=== PATIENT | female | born 1975 | race Caucasian/White ===

== ENCOUNTER 2018-12-17 13:21 | Emergency (ER) | payer OTHER ==
[~2018-12-17] VITALS: Ht 165.1 cm; Wt 100.0 kg
[2018-12-17 13:43] VITALS: BP 138/102
[2018-12-17] MEDS ORDERED: DULO60CA45 PO (14:14)
[2018-12-17] MEDS ORDERED: PREG150C PO (14:14)
== END 2018-12-17 14:50 | disposition home or self-care (01) ==
LOC: ER 13:22
DX: F41.9 Anxiety disorder, unspecified (principal); Z76.0 Encounter for issue of repeat prescription; F32.9 Major depressive disorder, single episode, unspecified; I10 Essential (primary) hypertension
CPT/HCPCS: 99283

== ENCOUNTER 2019-01-16 14:35 | Emergency (ER) | payer OTHER ==
[~2019-01-16] VITALS: Ht 165.1 cm; Wt 100.0 kg
[~2019-01-16 14:35] MED LIST: DULO60CA45 PO; PREG150C PO
[2019-01-16 14:43] VITALS: BP 166/106
== END 2019-01-16 15:18 | disposition home or self-care (01) ==
LOC: ER 14:35
DX: G89.29 Other chronic pain (principal); M54.5 Low back pain; I10 Essential (primary) hypertension; Z79.899 Other long term (current) drug therapy; Z88.2 Allergy status to sulfonamides; Z98.890 Other specified postprocedural states; W01.0XXA Fall on same level from slipping, tripping and stumbling without subsequent striking against object, initial encounter; Y93.89 Activity, other specified; Y92.89 Other specified places as the place of occurrence of the external cause; Y99.8 Other external cause status
CPT/HCPCS: 99281

== ENCOUNTER 2019-02-13 15:21 | Emergency (ER) | payer OTHER ==
[~2019-02-13] VITALS: Ht 165.1 cm; Wt 100.0 kg
[2019-02-13 15:49] VITALS: BP 162/95
[2019-02-13] MEDS ORDERED: DOXY100C43 PO (15:54)
[2019-02-13] MEDS ORDERED: LIDOcaine 1% w/epiNEPHrine 1:200,000 30ml vial IM ONE (15:55)
== END 2019-02-13 16:37 | disposition home or self-care (01) ==
LOC: ER 15:23
DX: K12.2 Cellulitis and abscess of mouth (principal); I10 Essential (primary) hypertension; Z98.890 Other specified postprocedural states; Z88.2 Allergy status to sulfonamides; Z79.899 Other long term (current) drug therapy
CPT/HCPCS: 10060; 99283; J3490

== ENCOUNTER 2020-02-14 12:55 | Emergency (ER) | payer OTHER ==
[~2020-02-14] VITALS: Ht 167.6 cm; Wt 77.0 kg
[2020-02-14 13:45] LABS: URINE HCG NEGATIVE (NEG)
[2020-02-14 13:52] LABS: CLARITY,URINE SLIGHTLY CLOUDY (Clear); COLOR,URINE YELLOW (Yellow); GLUCOSE, URINE NEGATIVE (Neg); KETONES,URINE NEGATIVE (Neg); LEUKOCYTE ESTERASE ,URINE NEGATIVE (Neg); NITRITES, URINE POSITIVE (Neg); OCCULT BLOOD,URINE TRACE-INTACT (Neg); PROTEIN,URINE NEGATIVE (Neg)
[2020-02-14 13:57] LABS: URINE AMPHETAMINE SCREEN POSITIVE (Neg); URINE BENZODIAZEPINES SCREEN NEGATIVE (Neg); URINE CANNABINOID SCREEN NEGATIVE (Neg); URINE COCAINE SCREEN NEGATIVE (Neg); URINE METHADONE SCREEN NEGATIVE (Neg); URINE OPIATE SCREEN NEGATIVE (Neg); URINE PHENCYCLIDINE SCREEN NEGATIVE (Neg)
[2020-02-14 13:58] LABS: UA COLLECTION TYPE CLN CATCH MIDSTREAM
[2020-02-14 14:00] LABS: BACTERIA,URINE 4+ /HPF (Neg); MUCUS STRANDS NONE SEEN /LPF (Neg); RBC,URINE 0-2 /HPF (0-2); SQUAMOUS EPITHELIAL CELL,UR MODERATE /LPF (FEW); WBC CLUMPS,URINE FEW /HPF (NEGATIVE)
[2020-02-14 14:05] LABS: URINE BARBITUATE SCREEN NEGATIVE (Neg)
[2020-02-14 14:06] LABS: BASOPHILS # (AUTO) 0.1 X10'3 (0-0.2); BASOPHILS % (AUTO) 0.6 % (0-1); EOSINOPHILS % (AUTO) 0.4 % (0-6); HEMATOCRIT 35.1 % (35.0-45.0); HEMOGLOBIN 11.5 g/dl (12.0-16.0); LYMPHOCYTES # (AUTO) 2.1 X10'3 (1.1-4.8); LYMPHOCYTES % (AUTO) 19.7 % (21-51); MEAN CORPUSCULAR HEMOGLOBIN 26.7 PG (27.0-31.0); MEAN CORPUSCULAR HGB CONC 32.9 g/dL (33.0-36.5); MEAN CORPUSCULAR VOLUME 81.2 FL (78-98); MONOCYTES # (AUTO) 0.9 X10'3 (0-0.9); MONOCYTES % (AUTO) 8.6 % (2-12); NEUTROPHILS # (AUTO) 7.7 X10'3 (1.8-7.7); NEUTROPHILS % (AUTO) 70.7 % (42-75); PLATELET COUNT 464 X10'3 (140-440); RED BLOOD COUNT 4.32 X10'6 (4.20-5.60); RED CELL DISTRIBUTION WIDTH 18.3 % (11.5-14.5); WHITE BLOOD COUNT 10.8 X10'3 (4.5-11.0)
[2020-02-14 14:14] LABS: ALANINE AMINOTRANSFERASE 13 U/L (12-78); ALBUMIN 3.7 G/DL (3.4-5.0); ALBUMIN/GLOBULIN RATIO 0.9 (1.1-1.5); ALKALINE PHOSPHATASE 86 IU/L (46-116); ANION GAP 11 (8-16); ASPARTATE AMINO TRANSFERASE 8 U/L (10-37); BLOOD UREA NITROGEN 9 MG/DL (7-18); CALCIUM 9.6 MG/DL (8.5-10.1); CHLORIDE 107 MMOL/L (99-107); CREATININE 0.82 MG/DL (0.40-0.90); GLUCOSE 98 MG/DL (70-104); POTASSIUM 3.2 MMOL/L (3.5-5.1); SODIUM 142 MMOL/L (135-145); TOTAL CARBON DIOXIDE 23.6 MMOL/L (24-32); TOTAL PROTEIN 7.9 G/DL (6.4-8.2); eGFR 76 ML/MIN
[2020-02-14 14:23] LABS: ETHANOL < 0.010 GM/DL (0.0-0.010)
[2020-02-14] MEDS ORDERED: NO HOME MEDS (14:38)
[2020-02-14] MEDS: cephalexin 250mg capsule PO SCH ×2 (14:40→19:31)
--- NOTE | 2020-02-14 18:45 | NUR ---
Packet to [facility]
[2020-02-14] MEDS ORDERED: hydrOXYzine 25 MG tablet PO ONE (19:15)
[2020-02-14] MEDS ORDERED: ibuprofen tablet 400 MG TABLET PO PRN (19:15)
--- NOTE | 2020-02-14 19:30 | NUR ---
One to one with the patient to assess severity of depressive symptoms and self harm risk. The patient reports she is feeling sucidal but with no plan currently. She then became very tearful and stated that she felt her family would be better off without her. She reports that her two children age 17 and 27 will not have anything to do with her and her family "has disowned me" She stated her boyfriend of one year just broke up with her. She stated she has no place to live, no car and no source of income currently. She stated her anxiety level was high. She stated prior psychiatric diagnosis have been PTSD, MDD but denies a history of BPD. She has a hx of self harming behaviors and stated she last had self harm behaviors over one month ago. She stated that she stopped all of her psychiatric medications since June of this last year. She stated she used methamphetamine one day ago. She presents as cooperative with the unit routine. She denies psychotic symptoms and one were apparent during the assessment.
--- NOTE | 2020-02-14 20:05 | NUR ---
[facility] is here to asssess the patient.
--- NOTE | 2020-02-14 21:25 | NUR ---
Per [facility] the patient will be placed on a 5150 hold.
--- NOTE | 2020-02-14 23:23 | NUR ---
The patient appears to be sleeping.
--- NOTE | 2020-02-15 01:11 | NUR ---
The patient appears to be sleeping.
--- NOTE | 2020-02-15 03:30 | NUR ---
The patient appears to be sleeping.
--- NOTE | 2020-02-15 04:45 | NUR ---
The patient appears to be sleeping.
[2020-02-15 06:05] VITALS: BP 120/72
--- NOTE | 2020-02-15 07:00 | NUR ---
Masha booker in [facility] - 02/15/20 at 0917 by DOUGLAS UP TO BATHROOM AND HAD BM. WENT BACK TO BED AT THIS TIME.
--- NOTE | 2020-02-15 08:00 | NUR ---
Masha booker in [facility] - 02/15/20 at 0917 by DOUGLAS IN BED, SLEEPING. NO DISTRESS NOTED AT PRESENT.
--- NOTE | 2020-02-15 08:10 | NUR ---
Masha booker in [facility] - 02/15/20 at 0904 by DOUGLAS MENTAL HEALTH WORKER AT THE BEDSIDE TO INTERVIEW PATIENT.
--- NOTE | 2020-02-15 08:25 | NUR ---
Masha booker in [facility] - 02/15/20 at 0905 by DOUGLAS BREAKFAST SERVED. ATE 100% OF MEAL AND TOLERATED WELL.
[2020-02-15] MEDS: cephalexin 250mg capsule PO SCH (08:41)
--- NOTE | 2020-02-15 08:55 | NUR ---
Note ade in [facility]M - 02/15/20 at 0906 by DOUGLAS MENTAL HEALTH WORKER AT THE BEDSIDE. PATIENT STATES HE NEEDS TO BE IN [place] TOMORROW FOR A COURT DATE. HE IS UNSURE HOW HE IS GETTING THERE, BUT HE IS ENCOURAGED TO CALL FAMILY MEMBER FOR ASSISTANCE WITH TRANSPORTATION. ATTEMPTING TO USE PHONE TO CALL FAMILY, BUT UNSUCCESSFUL AT THIS TIME.
--- NOTE | 2020-02-15 09:42 | NUR ---
[facility]VD REPORT FROM JENNIFER HERNANDES, PT IS IN BED LAYING ON HER RIGHT SIDE, EYES CLOSED APPEARS TO BE SLEEPING, REGULAR, SPONTANEOUS BREATHING OBSERVED, WILL CONTINUE TO MONITOR
--- NOTE | 2020-02-15 10:36 | NUR ---
PT IS IN SITTING UP IN BED, CALM, NO AGITATION OBSERVED
--- NOTE | 2020-02-15 11:19 | NUR ---
PT IS RESTING ON HER RIGHT SIDE, EYES CLOSED, APPEARS TO BE ASLEEP, REGULAR BREATHING OBSERVED
--- NOTE | 2020-02-15 12:00 | NUR ---
CALLED KRISTEN Joseph GAVE REPORT, PT IS TO BE ADMITTED UP TO [facility] FOR [facility] AT APPROX 1400
--- NOTE | 2020-02-15 12:07 | NUR ---
PT IS SITTING UP IN BED, NO AGITATION OBSERVED
--- NOTE | 2020-02-15 13:22 | NUR ---
PT IS SITTING UP IN BED, NO AGITATION OBSERVED, WILL CONTINUE TO MONITOR
[2020-02-15] MEDS ORDERED: BUPR300T86 (15:53)
[2020-02-15] MEDS ORDERED: BUSP15TA3 (15:53)
[2020-02-15] MEDS ORDERED: DULO60CA65 (15:53)
[2020-02-15] MEDS ORDERED: PREG100C55 (15:53)
[2020-02-15] MEDS ORDERED: lactobacillus rhamnosus 10,000 MMU CELLS/CAPSULE PO SCH (20:00)
== END 2020-02-15 14:31 ==
LOC: ER 12:56
DX: R45.851 Suicidal ideations (principal); N39.0 Urinary tract infection, site not specified; I10 Essential (primary) hypertension; F41.9 Anxiety disorder, unspecified; Z98.890 Other specified postprocedural states; Z88.2 Allergy status to sulfonamides
CPT/HCPCS: 36415; 80053; 80305; 80320; 81001; 81025; 84443; 85025; 99285; Q0177

== ENCOUNTER 2020-02-15 11:25 | Inpatient (IN) | payer OTHER ==
[~2020-02-15] VITALS: Ht 167.6 cm; Wt 76.3 kg
[~2020-02-15 11:25] MED LIST changes: -DULO60CA45 PO; +NO HOME MEDS; -PREG150C PO
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
[2020-02-15] MEDS ORDERED: potassium Cl 20 mEq SR tablet PO PRN (15:35)
[2020-02-15] MEDS: K and/or MAG REPLACEMENT MC SCH ×2 (15:35→20:00)
[2020-02-15] MEDS ORDERED: acetaminophen 325mg tablet PO PRN ×2 (15:40)
[2020-02-15] MEDS ORDERED: mag hydrox/Alum hydrox/simeth 30ml oral suspension PO PRN (15:40)
[2020-02-15] MEDS ORDERED: loperamide 2mg capsule PO PRN (15:40)
[2020-02-15] MEDS ORDERED: magnesium hydroxide 30ml (MOM) UD suspension PO PRN (15:40)
[2020-02-15] MEDS ORDERED: DULO60CA65 (15:53)
[2020-02-15] MEDS ORDERED: BUSP15TA3 (15:53)
[2020-02-15] MEDS ORDERED: PREG100C55 (15:53)
[2020-02-15] MEDS ORDERED: BUPR300T86 (15:53)
[2020-02-15 16:01] VITALS: BP 132/77
[2020-02-15] MEDS: ibuprofen tablet 400 MG TABLET PO PRN (16:44)
[2020-02-15] MEDS: LORazepam 1 MG tablet PO PRN (16:44)
[2020-02-15] MEDS: cephalexin 500mg capsule PO SCH (20:36)
[2020-02-15] MEDS: pregabalin 25mg capsule PO SCH (20:36)
[2020-02-15] MEDS: busPIRone 15mg tablet PO SCH (20:37)
[2020-02-15 20:59] VITALS: BP 135/75
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
[2020-02-16] MEDS ORDERED: duloxetine 30mg CAPSULE.DR PO SCH (08:00)
[2020-02-16] MEDS: K and/or MAG REPLACEMENT MC SCH ×2 (08:00→19:37)
[2020-02-16 08:29] VITALS: BP 120/86
[2020-02-16] MEDS: lactobacillus rhamnosus 10,000 MMU CELLS/CAPSULE PO SCH (08:49)
[2020-02-16] MEDS: busPIRone 15mg tablet PO SCH ×2 (08:49→21:23)
[2020-02-16] MEDS: pregabalin 25mg capsule PO SCH ×3 (08:49→21:23)
[2020-02-16] MEDS: cephalexin 500mg capsule PO SCH ×2 (08:49→21:23)
[2020-02-16] MEDS: LORazepam 1 MG tablet PO PRN (08:56)
[2020-02-16 09:06] LABS: HEMOGLOBIN A1C 5.5 % (4.5-6.2)
--- NOTE | 2020-02-16 09:12 | NUR ---
Malnutrition consult re: history gastric sleeve 6.5 years ago. No edema. Eating 100% of meals. No severe muscle weakness. Weight loss expected after any gastric surgery however past weights are all patient stated and not reliable for assessing malnutrition. Current BMI is good. No malnutrition present. Addendum: 02/16/20 at [address] Amended: Links added.
[2020-02-16 09:17] LABS: CHOL/HDL RATIO 2.9 (0.00-4.99); CHOLESTEROL 162 MG/DL (0-200); HDL CHOLESTEROL 55 MG/DL (35-60); LDL CHOLESTEROL 95 MG/DL (50-100); POTASSIUM 3.9 MMOL/L (3.5-5.1); TRIGLYCERIDES 61 MG/DL (20-135)
--- NOTE | 2020-02-16 10:00 | NUR ---
Group Therapy: Process Group This Clinicians goals for this process group were as follows: (1) Ask scaling questions about Patients current anxiety, depression, and irritability symptoms as a check-in. (2) Share with Patients psychoeducation about the importance of being able to identify safe, and supportive people who can assist them with their mental and emotional needs. (3) Share psychoeducation on interpersonal boundaries and considerations to assist Patients in developing the ability to discern which groups and individuals will be helpful in assisting them during times of emotional escalation and crisis. (4) Review emotional relaxation techniques (5) Engage Patients in discussion of the topics discussed within the group milieu. Patient identified experiencing the following levels of anxiety, depression, and anger/irritability while present in the group milieu. Anxiety: 510 Depression: 710 Anger irritability: 11/21 Patient presented as cooperative within the group milieu. Patient dressed in non-descript personal clothing that was appropriate for age, and gender expression. She presented as subdued and nonobtrusive within the group milieu. Patient was able to describe her subjective impression of how her depression felt in her body, as she stated that she felt, "Hollow, and empty," with a number she identified as 7/10. Patient did not contribute verbally in the discussion on interpersonal boundaries and strategies on how to invite new members into a [place] of trust so that she could increase her mental health support system. Patient unobtrusively left the group milieu prior to the official ending of the group process. Dada John MA, LAY Addendum: 02/16/20 at 1151 by Dada John SS Amended: Links added.
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
[2020-02-16 20:00] VITALS: BP 134/82
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
[2020-02-17 08:00] VITALS: BP 132/94
[2020-02-17] MEDS: K and/or MAG REPLACEMENT MC SCH ×2 (08:00→20:00)
[2020-02-17] MEDS: pantoprazole 40mg Tablet.DR PO SCH (09:13)
[2020-02-17] MEDS: lactobacillus rhamnosus 10,000 MMU CELLS/CAPSULE PO SCH (09:13)
[2020-02-17] MEDS: busPIRone 15mg tablet PO SCH ×2 (09:13→20:49)
[2020-02-17] MEDS: cephalexin 500mg capsule PO SCH ×2 (09:14→20:49)
[2020-02-17] MEDS: pregabalin 25mg capsule PO SCH ×3 (09:14→20:49)
[2020-02-17] MEDS: voritoxetine HBr tablet 5 MG TABLET PO SCH (09:14)
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
[2020-02-17] MEDS: LORazepam 1 MG tablet PO PRN (09:31)
[2020-02-17] MEDS: ibuprofen tablet 400 MG TABLET PO PRN (09:31)
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
--- NOTE | 2020-02-17 16:41 | NUR ---
DISCHARGE PLANNING Called Dr Mora office, [facility], to schedule follow up appt. They did not have record of Ayse. Faxed a referral form that she filled out. She will need to contact her insurance to find out where she can go for therapy. LAY Jackson
[2020-02-17 20:00] VITALS: BP 140/86
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
[2020-02-18 08:00] VITALS: BP 136/84
[2020-02-18] MEDS: K and/or MAG REPLACEMENT MC SCH (08:00)
--- NOTE | 2020-02-18 08:00 | NUR ---
Unclear K order in [facility]. Per Valeria MURRAY note, "pt last dose KDur 02/15/20 1644, K+ 4.5 on 02/16". KDur not dispensed in [facility] and not given per RN. (Pt K+ draw done today, 4.6 on 02/18/20).
[2020-02-18] MEDS: pantoprazole 40mg Tablet.DR PO SCH (08:30)
[2020-02-18] MEDS: pregabalin 25mg capsule PO SCH ×3 (08:30→20:47)
[2020-02-18] MEDS: busPIRone 15mg tablet PO SCH ×2 (08:31→20:48)
[2020-02-18] MEDS: voritoxetine HBr tablet 5 MG TABLET PO SCH (08:31)
[2020-02-18] MEDS: lactobacillus rhamnosus 10,000 MMU CELLS/CAPSULE PO SCH (08:31)
[2020-02-18] MEDS: cephalexin 500mg capsule PO SCH ×2 (08:31→20:49)
[2020-02-18] MEDS: LORazepam 1 MG tablet PO PRN (13:08)
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
[2020-02-18 20:00] VITALS: BP 127/83
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
[2020-02-19 07:55] VITALS: BP 116/78
[2020-02-19] MEDS: lactobacillus rhamnosus 10,000 MMU CELLS/CAPSULE PO SCH (08:12)
[2020-02-19] MEDS: pantoprazole 40mg Tablet.DR PO SCH (08:13)
[2020-02-19] MEDS: busPIRone 15mg tablet PO SCH (08:13)
[2020-02-19] MEDS: pregabalin 25mg capsule PO SCH ×2 (08:13→13:34)
[2020-02-19] MEDS: voritoxetine HBr tablet 5 MG TABLET PO SCH (08:13)
[2020-02-19] MEDS: ibuprofen tablet 400 MG TABLET PO PRN (08:38)
[2020-02-19] MEDS: LORazepam 1 MG tablet PO PRN (11:47)
[2020-02-19] MEDS ORDERED: BUSP30TA2 PO (12:26)
[2020-02-19] MEDS ORDERED: PANT40TA4 PO (12:26)
[2020-02-19] MEDS ORDERED: ATI1T PO (12:26)
[2020-02-19] MEDS ORDERED: VORT5TAB PO (12:26)
--- NOTE | 2020-02-19 14:04 | NUR ---
Nursing Discharge Note: Pt discharged from [facility] at 1355, accompanied by applied psychology chair to lobby where significant other is waiting to take home. Pt belongings inventoried and returned to her. Pt in no acute physical or emotional distress. She is pleased to be leaving and in pleasant mood with restricted affect. Pt has been improving since admission. Pt denies SI/HI, understands FU instructions and did not want nicotine replacement.
== END 2020-02-19 14:00 | disposition home or self-care (01) | DRG 885 ==
LOC: ADULT MH 11:25
PROVIDERS: ADMIT Psychiatry & Neurology Psychiatry; ATTEND Psychiatry & Neurology Psychiatry
DX: F33.2 Major depressive disorder, recurrent severe without psychotic features (principal); R45.851 Suicidal ideations; N39.0 Urinary tract infection, site not specified; F15.10 Other stimulant abuse, uncomplicated; I10 Essential (primary) hypertension; K21.9 Gastro-esophageal reflux disease without esophagitis; F43.12 Post-traumatic stress disorder, chronic; F41.9 Anxiety disorder, unspecified; E87.6 Hypokalemia; G89.29 Other chronic pain; M54.9 Dorsalgia, unspecified; Z83.3 Family history of diabetes mellitus; Z81.8 Family history of other mental and behavioral disorders; Z82.49 Family history of ischemic heart disease and other diseases of the circulatory system; Z82.5 Family history of asthma and other chronic lower respiratory diseases; Z90.711 Acquired absence of uterus with remaining cervical stump; Z56.0 Unemployment, unspecified; Z71.51 Drug abuse counseling and surveillance of drug abuser
CPT/HCPCS: 36415; 80061; 83036; 84132; 84443; 87081; 99285

== ENCOUNTER 2023-02-19 12:07 | Emergency (ER) | payer MEDICAID, OTHER ==
[~2023-02-19] VITALS: Ht 165.1 cm; Wt 95.0 kg
[~2023-02-19 12:07] MED LIST changes: +ATI1T PO; +BUSP30TA2 PO; -NO HOME MEDS; +PANT40TA54 PO; +PREG100C55; +VORT5TAB PO
[2023-02-19] MEDS ORDERED: normal saline 1000ML IV soln IVB ONE (14:30)
[2023-02-19] MEDS ORDERED: ondansetron/PF 4mg/2ml inj IV ONE (14:30)
[2023-02-19 15:18] LABS: CLARITY,URINE CLOUDY (Clear); COLOR,URINE YELLOW (Yellow); GLUCOSE, URINE NEGATIVE (Neg); KETONES,URINE NEGATIVE (Neg); LEUKOCYTE ESTERASE ,URINE NEGATIVE (Neg); NITRITES, URINE NEGATIVE (Neg); OCCULT BLOOD,URINE NEGATIVE (Neg); PH,URINE 5.5 (4.8-8.0); PROTEIN,URINE NEGATIVE (Neg)
[2023-02-19 15:22] LABS: UA COLLECTION TYPE CLN CATCH MIDSTREAM
[2023-02-19 15:34] LABS: CAL OXALATE CRYSTALS 2+ /HPF (NEGATIVE); HYALINE CASTS 0-3 /LPF (NEGATIVE); SQUAMOUS EPITHELIAL CELL,UR MODERATE /LPF (FEW)
[2023-02-19 15:35] LABS: BACTERIA,URINE FEW /HPF (Neg); RBC,URINE 0-2 /HPF (0-2); WBC,URINE 0-4 /HPF (0-4)
[2023-02-19 15:36] LABS: MUCUS STRANDS MANY /LPF (Neg)
[2023-02-19 16:03] LABS: ALANINE AMINOTRANSFERASE 28 U/L (12-78); ALBUMIN 4.1 G/DL (3.4-5.0); ALBUMIN/GLOBULIN RATIO 1.1 (1.1-1.5); ALKALINE PHOSPHATASE 83 IU/L (46-116); ANION GAP 9 (8-16); ASPARTATE AMINO TRANSFERASE 27 U/L (10-37); BILIRUBIN,TOTAL 1.1 MG/DL (0.1-1.0); BLOOD UREA NITROGEN 10 MG/DL (7-18); BUN/CREATININE RATIO 13.5 (10.0-20.0); CALCIUM 9.4 MG/DL (8.5-10.1); CHLORIDE 104 MMOL/L (99-107); CREATININE 0.74 MG/DL (0.40-0.90); GLUCOSE 93 MG/DL (70-104); LIPASE 83 U/L (73-393); POTASSIUM 3.7 MMOL/L (3.5-5.1); SODIUM 138 MMOL/L (135-145); TOTAL CARBON DIOXIDE 24.9 MMOL/L (24-32); TOTAL PROTEIN 7.9 G/DL (6.4-8.2); eGFR 84 ML/MIN
[2023-02-19 16:37] LABS: BASOPHILS # (AUTO) 0.1 X10'3 (0-0.2); BASOPHILS % (AUTO) 0.7 % (0-1); EOSINOPHILS # (AUTO) 0.1 X10'3 (0-0.9); EOSINOPHILS % (AUTO) 1.2 % (0-6); HEMATOCRIT 34.6 % (35.0-45.0); HEMOGLOBIN 11.6 g/dl (12.0-16.0); LYMPHOCYTES # (AUTO) 2.7 X10'3 (1.1-4.8); LYMPHOCYTES % (AUTO) 28.4 % (21-51); MEAN CORPUSCULAR HEMOGLOBIN 29.2 PG (27.0-31.0); MEAN CORPUSCULAR HGB CONC 33.5 g/dL (33.0-36.5); MEAN CORPUSCULAR VOLUME 87.1 FL (78-98); MEAN PLATELET VOLUME 7.2 FL (7.4-10.4); MONOCYTES # (AUTO) 0.8 X10'3 (0-0.9); NEUTROPHILS # (AUTO) 5.7 X10'3 (1.8-7.7); NEUTROPHILS % (AUTO) 60.7 % (42-75); PLATELET COUNT 328 X10'3 (140-440); RED BLOOD COUNT 3.98 X10'6 (4.20-5.60); RED CELL DISTRIBUTION WIDTH 13.5 % (11.5-14.5); WHITE BLOOD COUNT 9.4 X10'3 (4.5-11.0)
[2023-02-19] MEDS ORDERED: ONDA4TAB12 PO ×3 (16:54→19:03)
[2023-02-19] MEDS ORDERED: LORazepam 2 mg/ml vial IV ONE (18:10)
[2023-02-19] MEDS ORDERED: metoprolol tartrate 1mg/ml inj IV ONE (18:10)
[2023-02-19] MEDS ORDERED: HYDR25CA PO ×2 (18:26→19:03)
[2023-02-19] MEDS ORDERED: DULO60CA60 PO (18:26)
[2023-02-19] MEDS ORDERED: DULO-31 PO (19:03)
[2023-02-19] MEDS ORDERED: GABA100C PO (19:03)
[2023-02-19 19:06] VITALS: BP 150/96
== END 2023-02-19 19:07 | disposition home or self-care (01) ==
LOC: ER 12:07
DX: A08.4 Viral intestinal infection, unspecified (principal); E86.0 Dehydration; I10 Essential (primary) hypertension; Z88.2 Allergy status to sulfonamides; Z98.890 Other specified postprocedural states
CPT/HCPCS: 36415; 80053; 81001; 83690; 85025; 96374; 96375; 99285; J2060; J2405; J3490; J7030

== ENCOUNTER 2023-07-05 19:48 | Emergency (ER) | payer BC, MEDICAID ==
[~2023-07-05] VITALS: Ht 165.1 cm; Wt 94.0 kg
[~2023-07-05 19:48] MED LIST changes: -BUSP30TA2 PO; +DULO-31 PO; +DULO60CA60 PO; +GABA100C PO; +HYDR25CA PO; +ONDA4TAB12 PO; -PANT40TA54 PO; -PREG100C55; +PREG100C56; -VORT5TAB PO
[2023-07-05 20:53] LABS: BASOPHILS # (AUTO) 0.1 X10'3 (0-0.2); BASOPHILS % (AUTO) 1.3 % (0-1); EOSINOPHILS # (AUTO) 0.2 X10'3 (0-0.9); HEMOGLOBIN 12.1 g/dl (12.0-16.0); LYMPHOCYTES # (AUTO) 2.2 X10'3 (1.1-4.8); LYMPHOCYTES % (AUTO) 20.3 % (21-51); MEAN CORPUSCULAR HEMOGLOBIN 28.9 PG (27.0-31.0); MEAN CORPUSCULAR HGB CONC 33.6 g/dL (33.0-36.5); MEAN CORPUSCULAR VOLUME 86.1 FL (78-98); MONOCYTES % (AUTO) 9.6 % (2-12); NEUTROPHILS # (AUTO) 7.2 X10'3 (1.8-7.7); NEUTROPHILS % (AUTO) 66.8 % (42-75); PLATELET COUNT 421 X10'3 (140-440); RED BLOOD COUNT 4.19 X10'6 (4.20-5.60); RED CELL DISTRIBUTION WIDTH 13.8 % (11.5-14.5); WHITE BLOOD COUNT 10.7 X10'3 (4.5-11.0)
[2023-07-05 21:04] LABS: ALANINE AMINOTRANSFERASE 38 U/L (12-78); ALKALINE PHOSPHATASE 89 IU/L (46-116); ANION GAP 12 (8-16); ASPARTATE AMINO TRANSFERASE 26 U/L (10-37); BILIRUBIN,TOTAL 1.1 MG/DL (0.1-1.0); BLOOD UREA NITROGEN 16 MG/DL (7-18); BUN/CREATININE RATIO 18.4 (10.0-20.0); CALCIUM 9.5 MG/DL (8.5-10.1); CHLORIDE 103 MMOL/L (99-107); CREATININE 0.87 MG/DL (0.40-0.90); GLUCOSE 114 MG/DL (70-104); POTASSIUM 3.8 MMOL/L (3.5-5.1); SODIUM 138 MMOL/L (135-145); TOTAL CARBON DIOXIDE 23.3 MMOL/L (24-32); eCRCL 73 ML/MIN; eGFR 70 ML/MIN
[2023-07-05] MEDS ORDERED: PANT20TA18 PO (21:04)
[2023-07-05] MEDS ORDERED: GABA-530 PO (21:04)
[2023-07-05] MEDS ORDERED: DULO60CA59 PO (21:04)
[2023-07-05] MEDS ORDERED: LORazepam 2 mg/ml vial IM ONE (21:05)
[2023-07-05 21:06] LABS: ETHANOL < 10 MG/DL (<10)
[2023-07-05 21:15] LABS: URINE AMPHETAMINE SCREEN POSITIVE (Neg); URINE BARBITUATE SCREEN NEGATIVE (Neg); URINE BENZODIAZEPINES SCREEN NEGATIVE (Neg); URINE CANNABINOID SCREEN NEGATIVE (Neg); URINE COCAINE SCREEN NEGATIVE (Neg); URINE OPIATE SCREEN NEGATIVE (Neg); URINE PHENCYCLIDINE SCREEN NEGATIVE (Neg)
--- NOTE | 2023-07-05 21:22 | NUR ---
The patient moved to bed 25 in the ER overflow. She is very cooperative but tearful and anxious. She stated that she has not slept in 4 days. She is reporting that she is not wanting to have anyone know she is here. She admits to using meth and ETOH. She has been off her psychiatric medications for the past week. IM ativan given and the patient voluntarily accepted it. She was given a sandwhich. She is unemployed and living with her mother, Beryl. The patient stated that [facility] and the ER staff can share information with her mother. Resgistration made aware that the patient would like to be a confindential patient.
--- NOTE | 2023-07-05 21:58 | NUR ---
PACKET SENT TO [facility]
[2023-07-05 22:13] LABS: THYROID STIMULATING HORMONE 1.48 ulU/ml (0.34-4.50)
[2023-07-05] MEDS ORDERED: mag hydrox/Alum hydrox/simeth 30ml oral suspension PO ONE (22:15)
--- NOTE | 2023-07-05 22:57 | NUR ---
The patient appears to be sleeping
--- NOTE | 2023-07-06 01:15 | NUR ---
The patient is awake and sitting on her bed. C/O JUDSON YUAN made aware.
[2023-07-06] MEDS ORDERED: acetaminophen 325mg tablet PO ONE (01:20)
--- NOTE | 2023-07-06 03:03 | NUR ---
The patient appears to be sleeping
--- NOTE | 2023-07-06 05:01 | NUR ---
The patient appears to be sleeping
--- NOTE | 2023-07-06 06:30 | NUR ---
Pt is lying in bed on her right side asleep and snoring.
[2023-07-06] MEDS ORDERED: pantoprazole 40mg Tablet.DR PO SCH (07:30)
[2023-07-06 07:42] LABS: BILIRUBIN,URINE SMALL (Neg); CLARITY,URINE CLOUDY (Clear); COLOR,URINE YELLOW (Yellow); GLUCOSE, URINE NEGATIVE (Neg); KETONES,URINE TRACE mg/dl (Neg); LEUKOCYTE ESTERASE ,URINE NEGATIVE (Neg); NITRITES, URINE NEGATIVE (Neg); OCCULT BLOOD,URINE NEGATIVE (Neg); PROTEIN,URINE NEGATIVE (Neg); UROBILINOGEN,URINE 0.2 E.U/dL (0.2-1.0)
[2023-07-06 07:48] LABS: MUCUS STRANDS MANY /LPF (Neg); SQUAMOUS EPITHELIAL CELL,UR MANY /LPF (FEW); UA COLLECTION TYPE CLN CATCH MIDSTREAM
[2023-07-06 07:50] LABS: CAL OXALATE CRYSTALS 4+ /HPF (NEGATIVE)
[2023-07-06 07:51] LABS: BACTERIA,URINE 1+ /HPF (Neg); RBC,URINE 0-2 /HPF (0-2); WBC,URINE 0-4 /HPF (0-4)
[2023-07-06] MEDS ORDERED: duloxetine 30mg CAPSULE.DR PO SCH (08:00)
--- NOTE | 2023-07-06 08:30 | NUR ---
Pt is still sleeping soundly, snoring.
--- NOTE | 2023-07-06 09:51 | NUR ---
[facility] at bedside evaluating the patient.
--- NOTE | 2023-07-06 10:30 | NUR ---
Per [facility], pt is being placed on a 5150.
[2023-07-06] MEDS: gabapentin 100mg capsule PO SCH ×3 (10:40→14:52)
--- NOTE | 2023-07-06 11:55 | NUR ---
Pt is lying quietly in bed.
--- NOTE | 2023-07-06 12:57 | NUR ---
Eve from [facility] called for a nurse to nurse then [facility] called to report that [facility] has accepted the patient.
--- NOTE | 2023-07-06 13:07 | NUR ---
[facility] office called to report that flower picker time for transfer to [facility] is 1930.
--- NOTE | 2023-07-06 14:29 | NUR ---
Pt up to the bathroom.
--- NOTE | 2023-07-06 16:20 | NUR ---
Pt is lying in bed on her right side, she appears to be sleeping, respiration regular and unlabored.
--- NOTE | 2023-07-06 18:23 | NUR ---
The patient is resting on her bed. She appears calm and is cooperative. She denies psychotic symptoms and none were evident during the evening assessment. When asked about suicidal thoughts she replied, "not at the moment" She was made aware that she would be transferred to [facility] at 1930
[2023-07-06 19:40] VITALS: BP 148/83; PULSE 84; RESP 12; TEMP 98; O2SAT 99
== END 2023-07-06 19:43 ==
LOC: ER 19:50 → EEVIPCON 19:50 → ER 07-06 19:43
DX: F15.10 Other stimulant abuse, uncomplicated (principal); Z20.822 Contact with and (suspected) exposure to COVID-19; F43.20 Adjustment disorder, unspecified; F41.9 Anxiety disorder, unspecified; I10 Essential (primary) hypertension; F32.A Depression, unspecified; F51.5 Nightmare disorder; G47.9 Sleep disorder, unspecified; Z88.1 Allergy status to other antibiotic agents; Z79.899 Other long term (current) drug therapy
CPT/HCPCS: 36415; 80053; 80305; 80320; 81001; 84443; 85025; 87811; 96372; 99285; J2060

== ENCOUNTER 2023-08-14 08:30 | Emergency (ER) | payer MEDICAID ==
[~2023-08-14] VITALS: Ht 165.1 cm; Wt 98.4 kg
[~2023-08-14 08:30] MED LIST changes: -ATI1T PO; -DULO-31 PO; +DULO60CA59 PO; -DULO60CA60 PO; +GABA-530 PO; -GABA100C PO; -HYDR25CA PO; -ONDA4TAB12 PO; +PANT20TA18 PO; -PREG100C56
[2023-08-14] MEDS ORDERED: magnesium 2GM in 50ml NS 50 ML IV ONE (09:15)
[2023-08-14] MEDS ORDERED: normal saline 1000ML IV soln IVB ONE (09:15)
--- NOTE | 2023-08-14 09:38 | NUR ---
clarified the order of mg from provider torie Perdomo to admin for migrane patient.
[2023-08-14] MEDS ORDERED: metoclopramide 5 mg/ml inj IV ONE (11:00)
[2023-08-14] MEDS ORDERED: diphenhydrAMINE 50 mg/ml inj IV ONE (11:00)
[2023-08-14 11:14] LABS: BASOPHILS # (AUTO) 0.1 X10'3 (0-0.2); EOSINOPHILS # (AUTO) 0.2 X10'3 (0-0.9); HEMOGLOBIN 12.4 g/dl (12.0-16.0); MONOCYTES # (AUTO) 0.8 X10'3 (0-0.9)
[2023-08-14 11:16] LABS: BASOPHILS % (AUTO) 0.6 % (0-1); EOSINOPHILS % (AUTO) 2.3 % (0-6); HEMATOCRIT 37.8 % (35.0-45.0); LYMPHOCYTES # (AUTO) 2.1 X10'3 (1.1-4.8); LYMPHOCYTES % (AUTO) 20.7 % (21-51); MEAN CORPUSCULAR HEMOGLOBIN 29.2 PG (27.0-31.0); MEAN CORPUSCULAR HGB CONC 32.8 g/dL (33.0-36.5); MEAN CORPUSCULAR VOLUME 89.1 FL (78-98); MONOCYTES % (AUTO) 7.9 % (2-12); NEUTROPHILS # (AUTO) 7.1 X10'3 (1.8-7.7); NEUTROPHILS % (AUTO) 68.5 % (42-75); RED BLOOD COUNT 4.24 X10'6 (4.20-5.60); WHITE BLOOD COUNT 10.4 X10'3 (4.5-11.0)
[2023-08-14 11:25] LABS: ALANINE AMINOTRANSFERASE 12 U/L (12-78); ALBUMIN 3.1 G/DL (3.4-5.0); ALBUMIN/GLOBULIN RATIO 0.8 (1.1-1.5); ALKALINE PHOSPHATASE 83 IU/L (46-116); ANION GAP 6 (8-16); ASPARTATE AMINO TRANSFERASE 16 U/L (10-37); BILIRUBIN,TOTAL 0.6 MG/DL (0.1-1.0); BLOOD UREA NITROGEN 11 MG/DL (7-18); BUN/CREATININE RATIO 16.4 (10.0-20.0); CALCIUM 8.7 MG/DL (8.5-10.1); CHLORIDE 104 MMOL/L (99-107); CREATININE 0.67 MG/DL (0.40-0.90); GLUCOSE 93 MG/DL (70-104); POTASSIUM 4.4 MMOL/L (3.5-5.1); SODIUM 137 MMOL/L (135-145); TOTAL CARBON DIOXIDE 26.8 MMOL/L (24-32); TOTAL PROTEIN 6.9 G/DL (6.4-8.2); eCRCL 94 ML/MIN; eGFR > 90 ML/MIN
[2023-08-14 11:40] LABS: HCG SERUM QL NEGATIVE
[2023-08-14 12:27] LABS: PLATELET COUNT 319 X10'3 (140-440)
[2023-08-14 12:53] VITALS: BP 119/100; PULSE 65; RESP 17; TEMP 98.4; O2SAT 99
== END 2023-08-14 12:59 | disposition home or self-care (01) ==
LOC: ER 08:31
DX: G43.909 Migraine, unspecified, not intractable, without status migrainosus (principal); I10 Essential (primary) hypertension; F41.9 Anxiety disorder, unspecified; F32.9 Major depressive disorder, single episode, unspecified; F15.90 Other stimulant use, unspecified, uncomplicated; Z98.890 Other specified postprocedural states; Z88.2 Allergy status to sulfonamides; Z79.899 Other long term (current) drug therapy
CPT/HCPCS: 36415; 80053; 84703; 85025; 96361; 96365; 96375; 99284; J1200; J2765; J3475; J7030; 96374

== ENCOUNTER 2023-10-04 12:42 | Emergency (ER) | payer MEDICAID ==
[~2023-10-04] VITALS: Ht 165.1 cm; Wt 61.0 kg
[2023-10-04 13:04] VITALS: BP 129/79; PULSE 74; RESP 16; TEMP 98.3; O2SAT 98
[2023-10-04] MEDS ORDERED: GABA600T13 PO (18:02)
== END 2023-10-04 18:18 | disposition home or self-care (01) ==
LOC: ER 12:42
DX: Z76.0 Encounter for issue of repeat prescription (principal); G43.909 Migraine, unspecified, not intractable, without status migrainosus; I10 Essential (primary) hypertension; F41.9 Anxiety disorder, unspecified; F32.A Depression, unspecified; F15.90 Other stimulant use, unspecified, uncomplicated; Z88.2 Allergy status to sulfonamides; Z79.899 Other long term (current) drug therapy
CPT/HCPCS: 99281